=== PATIENT | male | born 1935 | race Caucasian/White ===

== ENCOUNTER 2018-12-10 16:25 | Emergency (ER) | payer MEDICARE ==
[2018-12-10 16:37] VITALS: BP 179/93; PULSE 76
--- NOTE | 2018-12-10 17:32 | EDM.PDOC ---
ED HPI GENERAL MEDICAL PROBLEM - General Chief Complaint: Lower Extremity Injury/Pain Stated Complaint: FELL AND HURT LEFT KNEE Time Seen by Provider: 12/10/18 16:30 Source of Information: Reports: Patient, Family History Limitations: Reports: No Limitations - History of Present Illness INITIAL COMMENTS - FREE TEXT/NARRATIVE: 83-year-old male fell and hurt his knee. 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 Left Knee Pain Score (Numeric/FACES): 7 - Related Data Allergies Allergy/AdvReac Type Severity Reaction Status Date / Time venom-honey bee Allergy Severe Anaphylactic Verified 12/10/18 16:44 [bee venom (honey bee)] Shock lisinopril Allergy Dizziness Verified 12/10/18 16:44 codeine AdvReac Stomach Verified 12/10/18 16:44 Ache tadalafil AdvReac Muscle Verified 12/10/18 16:44 Aches Home Meds: Home Meds EPINEPHrine [Epinephrine] 0.15 mg IM ONETIME PRN 12/16/14 [History] Levothyroxine 125 mcg PO ACBREAKFAST 12/16/14 [History] Metoprolol Succinate [Toprol XL] 12.5 mg PO DAILY 12/16/14 [History] Sildenafil [Viagra] 100 mg PO BEDTIME PRN 12/16/14 [History] Simvastatin [Zocor] 20 mg PO BEDTIME 12/16/14 [History] Vardenafil [Levitra] 5 mg PO ASDIRECTED PRN 12/16/14 [History] Warfarin [Coumadin] 2.5 mg PO ASDIRECTED 12/16/14 [History] Warfarin [Coumadin] 5 mg PO ASDIRECTED 12/16/14 [History] Donepezil HCl 10 mg PO BEDTIME 12/10/18 [History] Losartan Potassium 100 mg PO DAILY 12/10/18 [History] traZODone HCl [Trazodone HCl] 75 mg PO BEDTIME 12/10/18 [History] Past Medical History Cardiovascular History: Reports: Arrhythmia, High Cholesterol, Hypertension, Pacemaker Other Cardiovascular History: Arotic reguritation Genitourinary History: Reports: Prostate Disorder Neurological History: Reports: Concussion Endocrine/Metabolic History: Reports: Hypothyroidism Hematologic History: Reports: Anticoagulation Therapy Oncologic (Cancer) History: Reports: Prostate - Infectious Disease History Infectious Disease History: Reports: Chicken Pox, Measles - Past Surgical History HEENT Surgical History: Reports: Laser Surgery GI Surgical History: Reports: Appendectomy Musculoskeletal Surgical History: Reports: Shoulder Replacement Social & Family History - Tobacco Use Smoking Status *Q: Never Smoker - Caffeine Use Caffeine Use: Reports: Soda - Alcohol Use Days Per Week of Alcohol Use: 7 Number of Drinks Per Day: 1 Total Drinks Per Week: 7 - Recreational Drug Use Recreational Drug Use: No - Living Situation & Occupation Living situation: Reports: , with Spouse Occupation: Retired Review of Systems - Review of Systems Review Of Systems: See Below Constitutional: Denies: Fever Respiratory: Reports: No Symptoms Cardiovascular: Reports: No Symptoms GI/Abdominal: Reports: No Symptoms Skin: Reports: Bruising (Bruising is developing over the knee) Neurological: Reports: Other (Has worsening Lewi body dementia) ED EXAM, GENERAL - Physical Exam Exam: See Below Exam Limited By: No Limitations General Appearance: Alert, No Apparent Distress Eye Exam: Bilateral Eye: EOMI Head: Atraumatic Neck: Supple Respiratory/Chest: No Respiratory Distress Extremities: Other (Exam is otherwise limited to the lower extremities. The left knee has obvious swelling over the patella compared to the right. On palpation there is no joint effusion but there is deformity and crepitus of the patella. Patient cannot extend the leg at the knee against gravity.) Course - Vital Signs Last Recorded V/S: Last Vital Signs Temp 96.3 F 12/10/18 16:41 Pulse 76 12/10/18 16:41 Resp 20 12/10/18 16:41 BP 179/93 H 12/10/18 16:41 Pulse Ox 96 12/10/18 16:41 - Orders/Labs/Meds Meds: Medications Discontinued Medications Generic Name Dose Route Start Last Admin Trade Name Freq PRN Reason Stop Dose Admin Fentanyl 25 mcg 12/10/18 18:25 12/10/18 18:39 Sublimaze IVPUSH 12/10/18 18:26 25 mcg ONETIME ONE Administration - Re-Assessments/Exams Free Text/Narrative Re-Assessment/Exam: 12/10/18 17:42 An x-ray of the left knee was obtained and showed a displaced patellar fracture. 12/10/18 18:26 After consultation with orthopedics in [place], he was accepted for transfer. A knee immobilizer was placed on the patient and he was given 25 g of fentanyl, will be transported by private car. Departure - Departure Time of Disposition: 18:53 Disposition: DC/Tfer to Other 70 Clinical Impression: Fracture of left patella Qualifiers: Encounter type: initial encounter Fracture type: closed Fracture morphology: comminuted Fracture alignment: displaced Qualified Code(s): S82.042A - Displaced comminuted fracture of left patella, initial encounter for closed fracture - Discharge Information Instructions: Patellar Fracture, Adult Referrals: Rashaad De Oliveira MD [Primary Care Provider] - Forms: ED Department Discharge Care Plan Goals: Keep leg in an immobilizer while in route to [place], and go directly to the hospital for direct admission to be cared for by the orthopedic Department for your fractured patella.
--- NOTE | 2018-12-10 17:59 | CRLCR ---
INDICATION: Fall, knee pain. COMPARISON: None. TECHNIQUE: Three views of the left knee. FINDINGS: Mildly distracted, predominantly transverse, comminuted fracture of the patella, best seen on cross-table lateral, with overlying soft tissue swelling. Extensive vascular calcifications. IMPRESSION: Patellar fracture as above. Dictated by Yoni Clancy MD @ Dec 10 2018 5:54PM Signed by Dr. Yoni Clancy @ Dec 10 2018 5:57PM
[2018-12-10] MEDS ORDERED: fentaNYL 100 MCG/2 ML SDV IVPUSH ONE (18:25)
== END 2018-12-10 18:53 | disposition other institution (70) ==
LOC: JP.ED 16:25
DX: S82.042A Displaced comminuted fracture of left patella, initial encounter for closed fracture (principal); E03.9 Hypothyroidism, unspecified; I10 Essential (primary) hypertension; E78.00 Pure hypercholesterolemia, unspecified; Z90.49 Acquired absence of other specified parts of digestive tract; Z91.030 Bee allergy status; Z79.01 Long term (current) use of anticoagulants; Z88.8 Allergy status to other drugs, medicaments and biological substances; Z79.899 Other long term (current) drug therapy; W01.0XXA Fall on same level from slipping, tripping and stumbling without subsequent striking against object, initial encounter
CPT/HCPCS: 73562; 96374; 99284; J3010

== ENCOUNTER 2019-04-11 08:33 | Emergency (ER) | payer MEDICARE ==
[2019-04-11 08:54] VITALS: BP 170/99; PULSE 60
--- NOTE | 2019-04-11 09:16 | EDM.PDOC ---
ED HPI GENERAL MEDICAL PROBLEM - General Chief Complaint: Eye Problems Stated Complaint: SCRAPED/BLOODY LT EYE Time Seen by Provider: 04/11/19 09:16 Source of Information: Reports: Patient History Limitations: Reports: No Limitations - History of Present Illness INITIAL COMMENTS - FREE TEXT/NARRATIVE: 83 years old male patient with history of A. fib, chronically anticoagulated on warfarin presented to the ER with a chief complaint of supple conjunctival hemorrhage in his left eye. Patient stated that he woke up around 4 AM, felt like his left eye was irritated so he rubbed it gently then a didn't feel any better then woke up in the morning, found his eyes look like that. Denies any trauma or injury other than rubbing his eye. He did blow his nose hard this morning. Denies any headache. Denies any visual changes in his left eye. Vision is 20/100 on the right side, 20/70 in the left side. His is scheduled for cataract surgery this week at [place]. Denies any focal weakness or numbness anywhere. Denies any chest pain or shortness breath. Denies any pain in his eye. - Related Data Allergies Allergy/AdvReac Type Severity Reaction Status Date / Time venom-honey bee Allergy Severe Anaphylactic Verified 04/11/19 09:03 [bee venom (honey bee)] Shock lisinopril Allergy Dizziness Verified 04/11/19 09:03 codeine AdvReac Stomach Verified 04/11/19 09:03 Ache tadalafil AdvReac Muscle Verified 04/11/19 09:03 Aches Home Meds: Home Meds EPINEPHrine [Epinephrine] 0.15 mg IM ONETIME PRN 12/16/14 [History] Metoprolol Succinate [Toprol XL] 1.5 tab PO DAILY 12/16/14 [History] Sildenafil [Viagra] 100 mg PO BEDTIME PRN 12/16/14 [History] Simvastatin [Zocor] 20 mg PO BEDTIME 12/16/14 [History] Warfarin [Coumadin] 2.5 mg PO ASDIRECTED 12/16/14 [History] Donepezil HCl 10 mg PO BEDTIME 12/10/18 [History] Losartan Potassium 100 mg PO DAILY 12/10/18 [History] traZODone HCl [Trazodone HCl] 25 mg PO BEDTIME 12/10/18 [History] Levothyroxine Sodium 137 mcg PO DAILY 04/11/19 [History] Warfarin Sodium 5 mg PO ASDIRECTED 04/11/19 [History] Past Medical History HEENT History: Reports: Cataract Other HEENT History: both eyes Cardiovascular History: Reports: Afib, Aneurysm, Arrhythmia, High Cholesterol, Hypertension, Pacemaker Other Cardiovascular History: Arotic reguritation Genitourinary History: Reports: Prostate Disorder Other Genitourinary History: malignant neoplasm of prostrate Musculoskeletal History: Reports: Fracture, Osteoarthritis Neurological History: Reports: Alzheimers Disease, Concussion Endocrine/Metabolic History: Reports: Hypothyroidism Hematologic History: Reports: Anticoagulation Therapy Oncologic (Cancer) History: Reports: Malignant Melanoma, Prostate Dermatologic History: Reports: Melanoma - Infectious Disease History Infectious Disease History: Reports: Chicken Pox, Measles - Past Surgical History HEENT Surgical History: Reports: Laser Surgery GI Surgical History: Reports: Appendectomy Musculoskeletal Surgical History: Reports: Knee Replacement, Shoulder Replacement Social & Family History - Tobacco Use Smoking Status *Q: Former Smoker Used Tobacco, but Quit: Yes Month/Year Tobacco Last Used: 1970 - Caffeine Use Caffeine Use: Reports: Coffee - Recreational Drug Use Recreational Drug Use: No - Living Situation & Occupation Living situation: Reports: , with Spouse Occupation: Retired ED ROS GENERAL - Review of Systems Review Of Systems: Comprehensive ROS is negative, except as noted in HPI. ED EXAM GENERAL W FULL EYE - Physical Exam Exam: See Below Exam Limited By: No Limitations General Appearance: Alert, WD/WN, No Apparent Distress Conjunctiva & Sclera: Right: Normal Appearance, Left: Subconjuctival Hemorrhage Cornea Exam: Bilateral: Normal Appearance Extraocular Movements: Bilateral: Intact Pupils: Normal Accommodation Pupillary Size: Bilateral: 1 mm Pupillary Reaction: Bilateral: Sluggish Nose: Normal Inspection, Normal Mucosa, No Blood Throat/Mouth: Normal Inspection, Normal Lips, Normal Teeth, Normal Gums, Normal Oropharynx, Normal Voice, No Airway Compromise Head: Atraumatic, Normocephalic Neck: Normal Inspection, Supple, Non-Tender, Full Range of Motion Respiratory/Chest: No Respiratory Distress, Lungs Clear, Normal Breath Sounds, No Accessory Muscle Use, Chest Non-Tender Cardiovascular: Normal Peripheral Pulses, Regular Rate, Rhythm, No Edema, No Gallop, No JVD, No Murmur, No Rub GI/Abdominal: Normal Bowel Sounds, Soft, Non-Tender, No Organomegaly, No Distention, No Abnormal Bruit, No Mass Extremities: Normal Inspection, Normal Range of Motion, Non-Tender, Normal Capillary Refill, No Pedal Edema Course - Vital Signs Last Recorded V/S: Last Vital Signs Temp 36.6 C 04/11/19 09:03 Pulse 60 04/11/19 09:03 Resp 15 04/11/19 09:03 BP 170/99 H 04/11/19 09:03 Pulse Ox 95 04/11/19 09:03 - Orders/Labs/Meds Labs: Laboratory Tests 04/11/19 Range/Units 10:06 PT 34.8 H (9.5-12.0) sec INR 3.46 H (0.80-1.20) - Radiology Interpretation Free Text/Narrative:: Patient was seen and examined shortly after arrival. Stable. INR came back supratherapeutic at 3.4. I did consulted with his protective signal superintendent at [place] Dr. Len Tillman and he recommended artificial tears to keep the cornea moist. Advised to call him for any worsening vision or pain. Patient was advised to hold his Coumadin tonight and recheck INR tomorrow. Come back for any concern or any worsening symptom. Patient agrees with the plan. He refused transfer at this point since he does not have any visual changes or pain in his eye and he wanted to monitor and come back if it gets worse or go to [place] to see Dr. Ayala. Stable for discharge. Departure - Departure Time of Disposition: 10:39 Disposition: Home, Self-Care 01 Condition: Good Clinical Impression: Subconjunctival hemorrhage, Supratherapeutic INR - Discharge Information *PRESCRIPTION DRUG MONITORING PROGRAM REVIEWED*: Not Applicable *COPY OF PRESCRIPTION DRUG MONITORING REPORT IN PATIENT AL: Not Applicable Instructions: Warfarin Coagulopathy, Subconjunctival Hemorrhage Referrals: Rashaad De Oliveira MD [Primary Care Provider] - Forms: ED Department Discharge Additional Instructions: Use artificial tears to keep the cornea dry Come back for any concern or any worsening symptom Contact her protective signal superintendent for any eye pain or visual changes Do not take your Coumadin tonight and recheck INR tomorrow - Assessment/Plan Plan: Use artificial tears to keep the cornea dry Come back for any concern or any worsening symptom Contact her protective signal superintendent for any eye pain or visual changes Do not take your Coumadin tonight and recheck INR tomorrow
== END 2019-04-11 10:53 | disposition home or self-care (01) ==
LOC: JP.ED 08:33
DX: H11.32 Conjunctival hemorrhage, left eye (principal); R79.1 Abnormal coagulation profile; I48.91 Unspecified atrial fibrillation; E78.00 Pure hypercholesterolemia, unspecified; I10 Essential (primary) hypertension; G30.9 Alzheimer's disease, unspecified; F02.80 Dementia in other diseases classified elsewhere, unspecified severity, without behavioral disturbance, psychotic disturbance, mood disturbance, and anxiety; E03.9 Hypothyroidism, unspecified; Z88.5 Allergy status to narcotic agent; Z88.8 Allergy status to other drugs, medicaments and biological substances; Z91.030 Bee allergy status; Z79.01 Long term (current) use of anticoagulants; Z79.899 Other long term (current) drug therapy; Z79.890 Hormone replacement therapy; Z95.0 Presence of cardiac pacemaker; Z85.46 Personal history of malignant neoplasm of prostate; Z87.891 Personal history of nicotine dependence
CPT/HCPCS: 36415; 85610; 99283